=== PATIENT | male | born 1965 | race American Indian/Alaskan Native ===

== ENCOUNTER 2017-02-01 14:07 | Emergency (ER) | payer MEDICARE ==
[2017-02-01 15:00] VITALS: BP 146/91
--- NOTE | 2017-02-01 17:02 | Emergency Department Report ---
Abscess Boil HPI - HPI Chief Complaint: Skin/Abscess/Foreign Body Stated Complaint: ABCESS ON FACE Time Seen by Provider: 02/01/17 16:32 Duration: 4 Days Location: Other (cheek) History: Yes Pain, No Fever, No Purulent Drainage, No Numbness, No Foreign Body , No Previous History, No Insect Bite HPI: Patient is a 51-year-old female presents to ED complaining of a possible right side of his face. Patient states he has had it for the last 4 days. Patient is a [employer] patient was soaks, and have it assessed. Patient states it is mildly tender to touch. Patient denies fevers/chills/nausea/ vomiting/abdominal pain or any problems. Home Medications: Previous Rx's Medication Instructions Recorded Last Taken Type Cephalexin [Keflex] 500 mg PO BID #14 capsule 02/01/17 Unknown Rx Allergies/Adverse Reactions: Allergies Allergy/AdvReac Type Severity Reaction Status Date / Time No Known Allergies Allergy Unverified 02/01/17 14:55 ED Review of Systems ROS: Stated complaint: ABCESS ON FACE Other details as noted in HPI Constitutional: denies: chills, fever Eyes: denies: eye pain, eye discharge, vision change ENT: denies: ear pain, throat pain Respiratory: denies: cough, shortness of breath, wheezing Cardiovascular: denies: chest pain, palpitations Endocrine: no symptoms reported Gastrointestinal: denies: abdominal pain, nausea, diarrhea Genitourinary: denies: urgency, dysuria Musculoskeletal: denies: back pain, joint swelling, arthralgia Skin: other (cheek abscess). denies: rash, lesions, pruritus Neurological: denies: headache, weakness, paresthesias Psychiatric: denies: anxiety, depression Hematological/Lymphatic: denies: easy bleeding, easy bruising ED Past Medical Hx - Past Medical History Previous Medical History?: Yes Hx Diabetes: Yes (pre-dm) Hx GERD: Yes Additional medical history: low cholestrol - Surgical History Past Surgical History?: No - Social History Smoking Status: Current Every Day Smoker Substance Use Type: Alcohol - Medications Home Medications: Home Medications Medication Instructions Recorded Confirmed Last Taken Type Cephalexin [Keflex] 500 mg PO BID #14 capsule 02/01/17 Unknown Rx ED Abscess Boil Physical Exam - Exam General: Vital signs noted. No distress. Alert and acting appropriately. Size: 3 cm Exam: Yes Tenderness, Yes Fluctuance, Yes Normal Neurologic Exam, Yes Normal Circulation, No Surrounding Cellulites/Erythema, No Lymphangitis, No Crepitation , No Heart Murmur I & D Note - I & D Note I & D Note: Patient positioned appropriately, 15cc lidocaine with/without epinephrine was used as a local anesthetic. #11 blade scalpal used for single incision. Additional local anesthetic injected into surrounding viable tissue prior to blunt dissection of loculated adhesions. Copius drainage of pus. Wound packed with iodoform gauze. Procedure tolerated without complications. Wound dressed with sterile 4x4 guaze and paper tape. Pt tolerated procedure well. ED Course Vital Signs 02/01/17 14:55 Temperature 98.8 F Pulse Rate 78 Respiratory 18 Rate Blood Pressure 146/91 O2 Sat by Pulse 100 Oximetry Critical care attestation.: If time is entered above; I have spent that time in minutes in the direct care of this critically ill patient, excluding procedure time. ED Medical Decision Making - Medical Decision Making 51-year-old male presents with carbuncle abscess ED course: As constipation or follow-up with primary care physician yesterday to 5 days. Discussed antibiotic therapy for the next 7 days. Vital signs are stable patient is in no acute or respiratory distress. Patient tolerated incision and drainage well. See incision and drainage note ED Disposition Clinical Impression: Cutaneous abscess of face, Folliculitis Disposition: DISCHARGED TO HOME OR SELFCARE Is pt being admited?: No Does the pt Need Aspirin: No Condition: Stable Instructions: Folliculitis (ED), Abscess (ED) Prescriptions: Cephalexin [Keflex] 500 mg PO BID #14 capsule Referrals: PRIMARY CARE, [Primary Care Provider] - 3-5 Days [facility] [Outside] - 3-5 Days [facility] [Outside] - 3-5 Days [facility] [Outside] - 3-5 Days Forms: Work/School Release Form(ED) Time of Disposition: 17:28
== END 2017-02-01 18:00 | disposition home or self-care (01) ==
LOC: ED 14:07
DX: L02.01 Cutaneous abscess of face (principal); L73.9 Follicular disorder, unspecified; K21.9 Gastro-esophageal reflux disease without esophagitis; F17.200 Nicotine dependence, unspecified, uncomplicated
CPT/HCPCS: 99282